=== PATIENT | male | born 1995 | race African-American/Black ===

== ENCOUNTER 2022-09-20 22:26 | Emergency (ER) | payer OTHER, SELFPAY ==
[2022-09-20] MEDS ORDERED: Bacitracin 1 PK ONE (22:51)
== END 2022-09-20 22:56 ==
LOC: NAV ERS 22:26
DX: S80.211A Abrasion, right knee, initial encounter (principal); V89.2XXA Person injured in unspecified motor-vehicle accident, traffic, initial encounter; Y92.410 Unspecified street and highway as the place of occurrence of the external cause
CPT/HCPCS: 99283